=== PATIENT | female | born 1995 | race Two or more races ===

== ENCOUNTER 2024-08-22 12:38 | Emergency (ER) | payer OTHER ==
[~2024-08-22] VITALS: Ht 170.2 cm; Wt 56.7 kg
[2024-08-22 18:36] LABS: HEMATOCRIT 42.1 % (36.0-45.00); HEMOGLOBIN 14.7 g/dL (12.0-15.00); MEAN CELL VOLUME 85.2 fL (80.00-100.00); MEAN CORPUSCULAR HEMOGLOBIN 29.7 pg (27.00-32.0); MEAN CORPUSCULAR HGB CONC 34.8 g/dl (32.0-36.0); PLATELET COUNT 207 K/uL (150-450); RED BLOOD COUNT 4.94 M/uL (4.00-6.00); RED CELL DISTRIBUTION WIDTH 13.3 % (11.5-14.5)
[2024-08-22] MEDS ORDERED: OSELTAMIVIR PHOSPHATE 75 MG CAPSULE PO ONE ×2 (18:57→19:00)
[2024-08-22] MEDS ORDERED: GILTUSS COUGH-118 M1 PO (19:30)
[2024-08-22] MEDS ORDERED: ACETAMINOPHEN500 M1 PO (19:30)
[2024-08-22] MEDS ORDERED: OSEL75CA PO (19:30)
== END 2024-08-22 19:41 | disposition home or self-care (01) ==
LOC: ER 12:40
PROVIDERS: Preventive Medicine Public Health & General Preventive Medicine
DX: J10.1 Influenza due to other identified influenza virus with other respiratory manifestations (principal); R50.9 Fever, unspecified; Z20.822 Contact with and (suspected) exposure to COVID-19